=== PATIENT | female | born 1960 | race Caucasian/White ===

== ENCOUNTER 2016-11-18 15:32 | Observation (INO) | payer BC ==
[2016-11-18 15:51] VITALS: BMI 19.3
--- NOTE | 2016-11-18 15:52 | PDOC ---
Rapid Medical Evaluation Medical Evaluation: Allergies Allergy/AdvReac Type Severity Reaction Status Date / Time No Known Allergies Allergy Verified 11/18/16 15:46 11/18/16 15:49 I have performed a brief in-person evaluation of this patient. The patient presents with a chief complaint of: 55y/o F h/o palpitations p/w syncope, no injury. no focal neuro weakness Pertinent physical exam findings: VSS, BP 90/40 neuro intact, speech clear, ambulating irregular with normal rate I have ordered the following: EKG labs ua ct head at Dr. Cortez's request (family called as PMD and spoke with him while in triage) not consistent with CVA The patient will proceed to the ED for further evaluation. <Hao Love - Last Filed: 11/18/16 15:49> Medical Evaluation: Allergies Allergy/AdvReac Type Severity Reaction Status Date / Time No Known Allergies Allergy Verified 11/18/16 15:46 Vital Signs Temp Pulse Resp BP Pulse Ox 98.0 F 67 16 137/77 97 11/18/16 18:00 11/18/16 18:00 11/18/16 18:00 11/18/16 18:00 11/18/16 18:00 <Lisa Long - Last Filed: 11/18/16 19:07> Time Seen by Provider: 11/18/16 15:42
[2016-11-18 16:21] LABS: MCH 29.4 pg (25.7-33.7); MEAN CELL VOLUME 89.2 fl (80-96); MEAN PLT VOLUME 9.6 fl (7.5-11.1); RDW 13.4 % (11.6-15.6); WHITE BLOOD COUNT 19.4 K/mm3 (4.0-10.0)
[2016-11-18 16:38] LABS: INR 1.1 (0.82-1.09); PROTHROMBIN TIME (PATIENT) 12.1 SEC (9.98-11.88)
[2016-11-18 16:46] LABS: URINE APPEARANCE CLEAR; URINE BILIRUBIN NEGATIVE (NEGATIVE); URINE COLOR STRAW; URINE GLUCOSE (UA) NEGATIVE (NEGATIVE); URINE KETONE NEGATIVE (NEGATIVE); URINE LEUK ESTERASE NEGATIVE (NEGATIVE); URINE NITRITE NEGATIVE (NEGATIVE); URINE PROTEIN NEGATIVE (NEGATIVE); URINE UROBILINOGEN NEGATIVE E.U./dl (0.2-1.0)
[2016-11-18 17:00] LABS: ALBUMIN 4.1 g/dl (3.4-5.0); ANION GAP 12 (8-16); CALCIUM 8.9 mg/dL (8.5-10.1); CO2 28 mmol/L (21-32); CREATININE 0.7 mg/dL (0.55-1.02); GLUCOSE,RANDOM 106 mg/dL (74-106); MAGNESIUM 2.2 mg/dL (1.8-2.4); SGOT/AST 21 U/L (15-37); SGPT/ALT 26 U/L (12-78)
[2016-11-18 17:05] LABS: ALK PHOS 98 U/L (45-117); BILIRUBIN,TOTAL 0.4 mg/dL (0.2-1.0); TROPONIN I < 0.02 ng/ml (0.00-0.05)
[2016-11-18 17:13] LABS: URINE BLOOD 2+ (NEGATIVE)
[2016-11-18 17:16] LABS: GRANULAR CASTS 2 /lpf; URINE HYALINE CAST 2 /lpf; URINE MUCUS RARE; URINE RBC 6 /hpf (0-3); URINE WBC <1 /hpf (3-5)
[2016-11-18 17:41] LABS: PLATELET COMMENT2 NO CLOTTING DETECTED
[2016-11-18 18:27] LABS: URINE MARIJUANA THC POSITIVE ng/ml (CUTOFF=50)
--- NOTE | 2016-11-18 19:08 | PDOC ---
History of Present Illness <Anna Motley - Last Filed: 11/18/16 22:04> <Lisa Long - Last Filed: 11/18/16 23:28> - General Chief Complaint: Syncope/Near Syncope Stated Complaint: FAINTED/AMS/PALPITATIONS Time Seen by Provider: 11/18/16 15:42 - History of Present Illness Initial Comments: 11/18/16 19:09 The patient is a 55 year old female with a past medical hx of CLL, rosy's who presents to the ED for evaluation of a syncopal episode 1 hour ago. The patient states she was outside talking to her neighbors when she suddenly felt very thirsty. She reports she then had a syncopal episode. The patient notes this happened very quickly but denies any chest pain, palpitations, and SOB prior to her syncope. The patient states her son caught her so she denies any trauma to her head. She reports she smoked marijuana earlier today and reports she only had a few cashews to eat today. The patient reports she was disoriented for a little bit after but feels fine while in the ED. She denies a hx of syncopal episodes and reports she has been feeling her normal self the past few days. The patient denies nausea, vomiting The patient denies fever, chills Social: drink occasionally, smokes marijuana (Anna Motley) Past History <Anna Motley - Last Filed: 11/18/16 22:04> - Past Medical History Cancer: Yes (LEUKEMIA) - Psycho/Social/Smoking Cessation Hx Suicidal Ideation: No Smoking History: Never smoked <Lisa Long - Last Filed: 11/18/16 23:28> - Past Medical History Allergies/Adverse Reactions: Allergies Allergy/AdvReac Type Severity Reaction Status Date / Time No Known Allergies Allergy Verified 11/18/16 15:46 Home Medications: Ambulatory Orders NK [No Known Home Medication] 11/18/16 Review of Systems - Review of Systems Able to Perform ROS?: Yes <Anna Motley - Last Filed: 11/18/16 22:04> <Lisa Long - Last Filed: 11/18/16 23:28> - Review of Systems Comments:: 11/18/16 19:09 CONSTITUTIONAL: Absent: fever, chills, diaphoresis, generalized weakness, malaise, loss of appetite HEENT: Absent: rhinorrhea, nasal congestion, throat pain, throat swelling, difficulty swallowing, mouth swelling, ear pain, eye pain, visual Changes CARDIOVASCULAR: +Syncope. Absent: chest pain, palpitations, irregular heart rate, lightheadedness, peripheral edema RESPIRATORY: Absent: cough, shortness of breath, dyspnea with exertion, orthopnea, wheezing, stridor, hemoptysis GASTROINTESTINAL: Absent: abdominal pain, abdominal distension, nausea, vomiting, diarrhea, constipation, melena, hematochezia GENITOURINARY: Absent: dysuria, frequency, urgency, hesitancy, hematuria, flank pain, genital pain MUSCULOSKELETAL: Absent: myalgia, arthralgia, joint swelling SKIN: Absent: rash, itching, pallor NEUROLOGIC: Absent: headache, focal weakness or paresthesias, dizziness, unsteady gait, seizure, mental status changes, bladder or bowel incontinence PSYCHIATRIC: Absent: anxiety, depression, suicidal or homicidal ideation, hallucinations. (Anna Motley) *Physical Exam <Anna Motley - Last Filed: 11/18/16 22:04> <Lisa Long - Last Filed: 11/18/16 23:28> - Vital Signs Last Vital Signs Temp Pulse Resp BP Pulse Ox 98.0 F 67 16 137/77 97 11/18/16 18:00 11/18/16 18:00 11/18/16 18:00 11/18/16 18:00 11/18/16 18:00 - Physical Exam Comments: 11/18/16 19:09 GENERAL: Well developed, well nourished. Awake and alert. No acute distress. HEENT: Normocephalic, atraumatic. PERRLA, EOMI. No conjunctival pallor. Sclera are non- icteric. Moist mucous membranes. Oropharynx is clear. NECK: Supple. Full ROM. No JVD. Carotid pulses 2+ and symmetric, without bruits. No thyromegaly. No lymphadenopathy. CARDIOVASCULAR: Regular rate and rhythm. No murmurs, rubs, or gallops. Distal pulses are 2+ and symmetric. PULMONARY: No evidence of respiratory distress. Lungs clear to auscultation bilaterally. No wheezing, rales or rhonchi. ABDOMINAL: Soft. Non-tender. Non-distended. No rebound or guarding. No organomegaly. Normoactive bowel sounds. MUSCULOSKELETAL Normal range of motion at all joints. No bony deformities or tenderness. No CVA tenderness. EXTREMITIES: No cyanosis. No clubbing. No edema. No calf tenderness. SKIN: Warm and dry. Normal capillary refill. No rashes. No jaundice. NEUROLOGICAL: Alert, awake, appropriate. Cranial nerves 2-12 intact. No deficits to light touch and temperature in face, upper extremities and lower extremities. PSYCHIATRIC: Cooperative. Good eye contact. Appropriate mood and affect (Anna Motley) ED Treatment Course - LABORATORY CBC & Chemistry Diagram: 11/18/16 16:06 11/18/16 16:06 <Anna Motley - Last Filed: 11/18/16 22:04> - LABORATORY CBC & Chemistry Diagram: 11/18/16 16:06 11/18/16 16:06 <Lisa Long - Last Filed: 11/18/16 23:28> - ADDITIONAL ORDERS Additional order review: Laboratory Results 11/18/16 11/18/16 11/18/16 17:55 16:15 16:06 INR Sodium 141 Potassium 3.7 Chloride 101 Carbon Dioxide 28 Anion Gap 12 BUN 14 Creatinine 0.7 Creat Clearance w eGFR > 60 Random Glucose 106 Calcium 8.9 Magnesium 2.2 Total Bilirubin 0.4 AST 21 ALT 26 Alkaline Phosphatase 98 Creatine Kinase 76 Troponin I < 0.02 Total Protein 7.0 Albumin 4.1 Urine Color Straw Urine Appearance Clear Urine pH 6.0 Ur Specific [place] 1.008 Urine Protein Negative Urine Glucose (UA) Negative Urine Ketones Negative Urine Blood 2+ H Urine Nitrite Negative Urine Bilirubin Negative Urine Urobilinogen Negative Ur Leukocyte Esterase Negative Urine RBC 6 Urine WBC <1 Hyaline Casts 2 Granular Casts 2 Urine Mucus Rare Opiates Screen Negative Methadone Screen Negative Barbiturate Screen Negative Phencyclidine Screen Negative Ur Amphetamines Screen Negative MDMA (Ecstasy) Screen Negative Benzodiazepines Screen Negative Cocaine Screen Negative U Marijuana (THC) Screen Positive 11/18/16 16:06 INR 1.10 Sodium Potassium Chloride Carbon Dioxide Anion Gap BUN Creatinine Creat Clearance w eGFR Random Glucose Calcium Magnesium Total Bilirubin AST ALT Alkaline Phosphatase Creatine Kinase Troponin I Total Protein Albumin Urine Color Urine Appearance Urine pH Ur Specific [place] Urine Protein Urine Glucose (UA) Urine Ketones Urine Blood Urine Nitrite Urine Bilirubin Urine Urobilinogen Ur Leukocyte Esterase Urine RBC Urine WBC Hyaline Casts Granular Casts Urine Mucus Opiates Screen Methadone Screen Barbiturate Screen Phencyclidine Screen Ur Amphetamines Screen MDMA (Ecstasy) Screen Benzodiazepines Screen Cocaine Screen U Marijuana (THC) Screen 11/18/16 16:06 RBC 4.40 MCV 89.2 MCHC 33.0 RDW 13.4 MPV 9.6 Neutrophils % 69.0 Lymphocytes % 26.0 Monocytes % 5.0 Eosinophils % 0.0 Basophils % 0.0 - RADIOLOGY Radiograph Interpretation: 11/18/16 19:[address] without contrast Clinical information: lightheaded, syncope No intracranial hemorrhage is identified. There is no discrete infarct within the limitations of CT. No obvious mass lesion is identified on noncontrast imaging. The ventricles and cisterns appear unremarkable. Impression: No definite CT evidence of acute pathology. Reported By: Rod Peterson MD 11/18/16 1759 11/18/16 22:04 Chest portable one view Clinical information chest pain, evaluate for infiltrate No discrete infiltrate or pleural effusion is seen. There is no evidence of pneumothorax. The heart, marisela and mediastinum appear unremarkable as visualized. impression: No definite radiographic abnormality is visualized. Reported By: Rod Peterson MD 11/18/162052 (Anna Motley) - Medications Given in the ED: ED Medications Discontinued Medications Generic Name Dose Route Start Last Admin Trade Name Freq PRN Reason Stop Dose Admin Aspirin 325 mg 11/18/16 19:10 11/18/16 19:46 Asa - PO 11/18/16 19:11 325 mg ONCE ONE Administration Medical Decision Making <Anna Motley - Last Filed: 11/18/16 22:04> <Lisa Long - Last Filed: 11/18/16 23:28> - Medical Decision Making 11/18/16 20:08 Discussed patients case with Dr. Kellogg at 1930. Discussed patients case with Dr. Kingston at 2007. (Anna Motley) 11/18/16 23:16 55 yo female had a syncopal episode today. She felt fine and she suddenly fainted. She was caught by someone next to her and therefore did not sustain any head trauma -she reports feeling briefly confused after the incident but denies any slurred speech,facial droop, extremity numbness or weakness,headache or chest pain or shortness of breath -pt did smoke marijuana earlier ct head head no acute intracranial pathology cardiac enzyme negaitve ekg no acute ischemia did show incomplete right BBB nihss is [address] Mis Zambrano who was covering for Dr Lisa Hernandez . Dr Kellogg requested that Juan Manuel/David admit this pt and Dr Kellogg would be cards weight loss consultant Diff diag: cardiac arrhythmia/ drug rxn pt willl be admitted to tele (Lisa Long) *DC/Admit/Observation/Transfer <Anna Motley - Last Filed: 11/18/16 22:04> - Discharge Dispostion Admit: Yes <Lisa Long - Last Filed: 11/18/16 23:28> Diagnosis at time of Disposition: Syncope and collapse - Discharge Dispostion Decision to Admit order Date/Time: Decision to Admit Order Category Date Time Status Decision to Admit to Hospital Routine Admission 11/18/16 19:21 Active - Attestations Scribe Attestion: 11/18/16 19:09 Documentation prepared by Anna Motley, acting as faculty i on call medical assistant for Lisa Long MD/DO. (Anna Motley)
[2016-11-18] MEDS ORDERED: ASPIRIN 325 MG TABLET PO ONE (19:10)
[2016-11-18] MEDS ORDERED: ASPIRIN 325 MG TABLET ONE (19:39)
[2016-11-18] MEDS ORDERED: SODIUM CHLORIDE 1,000 ML IV SCH (22:30)
[2016-11-18 23:23] LABS: TROPONIN I < 0.02 ng/ml (0.00-0.05)
[2016-11-19] MEDS ORDERED: INFLUENZA VACCINE 45 MCG/0.5 ML (MDV 16-17) IM ONE (00:26)
[2016-11-19 07:31] LABS: FREE T4 1.26 ng/dl (0.76-1.46)
[2016-11-19 07:34] LABS: MCH 29.7 pg (25.7-33.7); MCHC 33.6 g/dl (32.0-36.0); MEAN CELL VOLUME 88.4 fl (80-96); MEAN PLT VOLUME 10.2 fl (7.5-11.1)
[2016-11-19 07:42] LABS: ALBUMIN 3.8 g/dl (3.4-5.0); ALK PHOS 96 U/L (45-117); ANION GAP 7 (8-16); BILIRUBIN,TOTAL 0.5 mg/dL (0.2-1.0); CALCIUM 8.8 mg/dL (8.5-10.1); CO2 30 mmol/L (21-32); CREATININE 0.6 mg/dL (0.55-1.02); GLUCOSE,RANDOM 76 mg/dL (74-106); SGOT/AST 19 U/L (15-37); SGPT/ALT 24 U/L (12-78); THYROID STIMULATING HORMONE 6.95 uIU/ml (0.358-3.74); TOT PROT 6.3 g/dl (6.4-8.2)
[2016-11-19 08:45] LABS: TROPONIN I < 0.02 ng/ml (0.00-0.05)
--- NOTE | 2016-11-19 10:25 | HP ---
Admitting History and Physical - Primary Care Physician PCP: Boyd Kellogg - Admission Chief Complaint: syncope History of Present Illness: ER HISTORY - History of Present Illness Initial Comments: 11/18/16 19:09 The patient is a 55 year old female with a past medical hx of CLL, rosy's who presents to the ED for evaluation of a syncopal episode 1 hour ago. The patient states she was outside talking to her neighbors when she suddenly felt very thirsty. She reports she then had a syncopal episode. The patient notes this happened very quickly but denies any chest pain, palpitations, and SOB prior to her syncope. The patient states her son caught her so she denies any trauma to her head. She reports she smoked marijuana earlier today and reports she only had a few cashews to eat today. The patient reports she was disoriented for a little bit after but feels fine while in the ED. She denies a hx of syncopal episodes and reports she has been feeling her normal self the past few days. The patient denies nausea, vomiting The patient denies fever, chills Pt seen by me in Telemetry Feels ok, no dizziness She admits she did not eat well yesterday, she does not have a good appetite HAs had multiple work up for palpitations and frequent APC -- stress test and event monitor was done recently. She denies palpitations during this syncopal episode Never had fainted before she just remembers everything becoming dark and closing in and lost consciousness. Her Oncologist is from [facility] -- she had seen her recently History Source: Patient Limitations to Obtaining History: No Limitations - Past Medical History Heme/Onc: Yes: Other (CLL) Endocrine: Yes: Other (Rosy's disease) - Smoking History Smoking history: Never smoked Have you smoked in the past 12 months: No - Alcohol/Substance Use Hx Alcohol Use: Yes (SOCIAL - 2 GLASSES WINE 3X/WK) Home Medications - Allergies Allergies/Adverse Reactions: Allergies Allergy/AdvReac Type Severity Reaction Status Date / Time No Known Allergies Allergy Verified 11/18/16 15:46 - Home Medications Home Medications: Ambulatory Orders NK [No Known Home Medication] 11/18/16 Review of Systems - Review of Systems Constitutional: reports: Loss of Appetite. denies: Chills, Fever, Weakness Cardiovascular: denies: Chest Pain, Palpitations, Shortness of Breath Neurological: denies: Dizziness, Headache Physical Examination Vital Signs: Vital Signs Temperature 97.6 F 11/19/16 06:00 Pulse Rate 55 L 11/19/16 06:00 Respiratory Rate 18 11/19/16 06:00 Blood Pressure 100/68 11/19/16 06:00 O2 Sat by Pulse Oximetry (%) 100 11/19/16 09:00 Constitutional: Yes: No Distress, Calm Cardiovascular: Yes: Regular Rate and Rhythm Respiratory: Yes: CTA Bilaterally Gastrointestinal: Yes: Normal Bowel Sounds, Soft. No: Distention, Tenderness Edema: No Neurological: Yes: WNL ...Motor Strength: WNL Psychiatric: Yes: Alert, Oriented Labs: CBC, BMP 11/19/16 05:35 11/19/16 05:35 Imaging - Results Chest X-ray: Image Reviewed (clear) Cat Scan: Report Reviewed (CT head- negative) EKG: Image Reviewed (Sinus rhythm, PVC) Problem List - Problems (1) Syncope and collapse Code(s): R55 - SYNCOPE AND COLLAPSE (2) CLL (chronic lymphocytic leukemia) Code(s): C91.10 - CHRONIC LYMPHOCYTIC LEUK OF B-CELL TYPE NOT ACHIEVE REMIS Assessment/Plan PLAN -- check Echo -- spoke with associate programmer -- Negative orthostasis -- -- IV fluids DVT prophylaxis-- pt is ambulatory
--- NOTE | 2016-11-19 11:03 | CON.CARD ---
Cardiology Consult (text) - Consultation Consultation Note: cc: syncope hpi: 55 f hx palps, CLL, rosy's, MVP here after episode of syncope. Pt has been feeling well lately, no recent illnesses, no cp, sob, dizzy, pnd, orthopnea, le edema. She has hx of palps past few months but they have improved and not been bothering her much lately. Yesterday she was feeling well , had some marijuana, didn't eat much during the day, then later in day was standing with son and suddenly felt "faint" and collapsed. Her son caught her so she didnt fall and reports she was passed out about 20 seconds. After she awoke she was a little confused. [place] better as time went on and came to ER for eval. No prior episodes, no repeat episodes since yesterday. Sees dr bassett for cardio. pmh: per hpi psh: nc social: no tob, +MJ fam: no premature cad or scd ros: per hpi; no nvd, fever, cough, nasal congestion, muscle pain, gib, hematuria, rash, scott, vision changes meds: none taken pe: Vital Signs Period Temp Pulse Resp BP Sys/Ballesteros Pulse Ox Last 24 Hr 97.6 F-98.0 F 55-88 16-19 94-137/46-81 97-100 nad no jvd rrr s1s2 no mrg cta bl nl eff aaox3 no le e/c/c abd nt nd pos bs no jaundice diaphoresis pos dp pt no carotid bruits Laboratory Last Values WBC 19.4 K/mm3 (4.0-10.0) H 11/18/16 16:06 RBC 4.29 M/mm3 (3.60-5.2) 11/19/16 05:35 Hgb 12.7 GM/dL (10.7-15.3) 11/19/16 05:35 Hct 37.9 % (32.4-45.2) 11/19/16 05:35 MCV 88.4 fl (80-96) 11/19/16 05:35 MCHC 33.6 g/dl (32.0-36.0) 11/19/16 05:35 RDW 13.0 % (11.6-15.6) 11/19/16 05:35 Plt Count Not Reportable 11/19/16 05:35 MPV 10.2 fl (7.5-11.1) 11/19/16 05:35 Neutrophils % 24.0 % (42.8-82.8) L D 11/19/16 05:35 Lymphocytes % 69.0 % (8-40) H D 11/19/16 05:35 Monocytes % 3.0 % (3.8-10.2) L 11/19/16 05:35 Eosinophils % 2.0 % (0-4.5) D 11/19/16 05:35 Basophils % 0.0 % (0-2.0) 11/18/16 16:06 Differential Comment Manual diff done 11/19/16 05:35 Platelet Comment Marked plt clumping 11/19/16 05:35 Platelet Comment No clotting detected 11/18/16 16:06 INR 1.10 (0.82-1.09) 11/18/16 16:06 Sodium 138 mmol/L (136-145) 11/19/16 05:35 Potassium 3.9 mmol/L (3.5-5.1) 11/19/16 05:35 Chloride 101 mmol/L (98-107) 11/19/16 05:35 Carbon Dioxide 30 mmol/L (21-32) 11/19/16 05:35 Anion Gap 7 (8-16) L 11/19/16 05:35 BUN 10 mg/dL (7-18) D 11/19/16 05:35 Creatinine 0.6 mg/dL (0.55-1.02) 11/19/16 05:35 Creat Clearance w eGFR > 60 (>60) 11/19/16 05:35 Random Glucose 76 mg/dL (74-106) D 11/19/16 05:35 Calcium 8.8 mg/dL (8.5-10.1) 11/19/16 05:35 Magnesium 2.2 mg/dL (1.8-2.4) 11/18/16 16:06 Total Bilirubin 0.5 mg/dL (0.2-1.0) D 11/19/16 05:35 AST 19 U/L (15-37) 11/19/16 05:35 ALT 24 U/L (12-78) 11/19/16 05:35 Alkaline Phosphatase 96 U/L (45-117) 11/19/16 05:35 Creatine Kinase 63 IU/L (26-192) 11/19/16 05:35 Troponin I < 0.02 ng/ml (0.00-0.05) 11/19/16 05:35 Total Protein 6.3 g/dl (6.4-8.2) L 11/19/16 05:35 Albumin 3.8 g/dl (3.4-5.0) 11/19/16 05:35 Vitamin B12 482 pg/ml (180-914) 11/19/16 05:35 TSH 6.95 uIU/ml (0.358-3.74) H 11/19/16 05:35 Free T4 1.26 ng/dl (0.76-1.46) 11/19/16 05:35 Urine Color Straw 11/18/16 16:15 Urine Appearance Clear 11/18/16 16:15 Urine pH 6.0 (5.0-8.0) 11/18/16 16:15 Ur Specific [place] 1.008 (1.001-1.035) 11/18/16 16:15 Urine Protein Negative (NEGATIVE) 11/18/16 16:15 Urine Glucose (UA) Negative (NEGATIVE) 11/18/16 16:15 Urine Ketones Negative (NEGATIVE) 11/18/16 16:15 Urine Blood 2+ (NEGATIVE) H 11/18/16 16:15 Urine Nitrite Negative (NEGATIVE) 11/18/16 16:15 Urine Bilirubin Negative (NEGATIVE) 11/18/16 16:15 Urine Urobilinogen Negative E.U./dl (0.2-1.0) 11/18/16 16:15 Ur Leukocyte Esterase Negative (NEGATIVE) 11/18/16 16:15 Urine RBC 6 /hpf (0-3) 11/18/16 16:15 Urine WBC <1 /hpf (3-5) 11/18/16 16:15 Hyaline Casts 2 /lpf 11/18/16 16:15 Granular Casts 2 /lpf 11/18/16 16:15 Urine Mucus Rare 11/18/16 16:15 Opiates Screen Negative ng/ml (IUWLWK=044) 11/18/16 17:55 Methadone Screen Negative ng/ml (DMGKBV=325) 11/18/16 17:55 Barbiturate Screen Negative ng/ml (LQQMUF=335) 11/18/16 17:55 Phencyclidine Screen Negative ng/ml (CUTOFF=25) 11/18/16 17:55 Ur Amphetamines Screen Negative ng/ml (IOVMQA=308) 11/18/16 17:55 MDMA (Ecstasy) Screen Negative ng/ml (KJYYPE=436) 11/18/16 17:55 Benzodiazepines Screen Negative ng/ml (SPEPQS=757) 11/18/16 17:55 Cocaine Screen Negative ng/ml (IJGQKV=161) 11/18/16 17:55 U Marijuana (THC) Screen Positive ng/ml (CUTOFF=50) 11/18/16 17:55 cxr: clear lungs head ct: no acute findings tele: sr, artifact ecg 11/18/16: sr, pacs, nl intervals, IRBBB, no ischemic changes carotids 11/2016: minimal thickening, no sig stenosis mibi 09/2016: normal study, no ischemia a/p: 55 f hx palps, CLL, rosy's, MVP here after episode of syncope. syncope: -no obvious cardiac etiology at present -ecg, tele, carotids unremarkable -ce's neg x3 -recent outpt mibi wnl per dr bassett -echo pending here -check orthostatic vs -holter ordered here although pt had recent unremarkable 2 week event monitor with dr bassett so will likely be unremarkable -possible vagal episode in setting of using marijuana and not eating -if echo benign can dc from cardiac pov (if current holter can be completed as outpt) and pt will f/u with dr bassett palps: -plan as above -chronic, extensive outpt work up unremarkable (event monitor, mibi) -palps have been less frequent recently, not really bothering pt -tele unremarkable here -outpt f/u with dr bassett mvp: -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
[2016-11-19 11:45] LABS: PLATELET ESTIMATE SLT DECREASED (NORMAL)
[2016-11-19 11:46] LABS: WHITE BLOOD COUNT 4.1 K/mm3 (4.0-10.0)
--- NOTE | 2016-11-19 13:59 | EKG ---
Test Reason : Blood Pressure : / mmHG Vent. Rate : 070 BPM Atrial Rate : 070 BPM P-R Int : 160 ms QRS Dur : 098 ms QT Int : 428 ms P-R-T Axes : 067 043 059 degrees QTc Int : 462 ms SINUS RHYTHM WITH MARKED SINUS ARRHYTHMIA WITH PREMATURE SUPRAVENTRICULAR COMPLEXES INCOMPLETE RIGHT BUNDLE BRANCH BLOCK BORDERLINE ECG NO PREVIOUS ECGS AVAILABLE Confirmed by FAVIOLA PRATT MD ([id number]) on 11/19/2016 1:58:47 PM Referred By: Confirmed By:FAVIOLA PRATT MD
[2016-11-19] MEDS ORDERED: SODIUM CHLORIDE 250 ML IV SCH (15:45)
[2016-11-19] MEDS ORDERED: SODIUM CHLORIDE 1,000 ML IV SCH (16:45)
[2016-11-20 08:32] VITALS: PULSE 53
[2016-11-20 10:44] VITALS: BP 118/80; TEMP 96.7
--- NOTE | 2016-11-20 10:51 | PN ---
Progress Note (short form) - Note Progress Note: s: no cp sob palps dizzy o: Vital Signs Period Temp Pulse Resp BP Sys/Ballesteros Pulse Ox Last 24 Hr 96.7 F-98.2 F 53-61 18-20 82-119/44-80 99-99 nad no jvd rrr s1s2 no mrg cta bl nl eff aaox3 no le e/c/c abd nt nd pos bs no jaundice diaphoresis Current Medications Generic Name Dose Route Start Last Admin Trade Name Freq PRN Reason Stop Dose Admin Sodium Chloride 1,000 mls @ 100 mls/hr 11/19/16 16:45 11/19/16 17:07 Normal Saline - IV 100 mls/hr ASDIR ILEANA Administration CBC, BMP 11/19/16 05:35 11/19/16 05:35 cxr: clear lungs head ct: no acute findings tele: sr, occ pacs ecg 11/18/16: sr, pacs, nl intervals, IRBBB, no ischemic changes carotids 11/2016: minimal thickening, no sig stenosis echo 11/2016: nl lv/rv, nl rvsp, mild mr/tr/pr mibi 09/2016: normal study, no ischemia a/p: 55 f hx palps, CLL, rosy's, MVP here after episode of syncope. syncope: -no obvious cardiac etiology at present -ecg, tele, echo, orthostatics, carotids unremarkable -ce's neg x3 -recent outpt mibi wnl per dr bassett -holter on now, to be completed today, can be followed up as outpt as she was on tele as well during monitoring period and no significant abnormalities noted -possible vagal episode in setting of using marijuana and not eating -can dc from cardiac pov and pt will f/u with dr bassett palps: -plan as above -chronic, extensive outpt work up unremarkable (event monitor, mibi) -palps have been less frequent recently, not really bothering pt -tele unremarkable here -outpt f/u with dr bassett mvp: -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
--- NOTE | 2016-11-20 11:17 | HOL ---
Hook-up date: 2016-11-19 11:02:00 Duration: 23:13:00 Test Indications: SYNCOPE Medications: 66321 QRS complexes * Ventricular ectopics which represent % of total QRS comp. 4077 Supraventricular ectopics which represent 4 % of total QRS comp. * Paced QRS complexs which represent % of total QRS comp. * % of Time Classified as Noise VENTRICULAR ECTOPY * Isolated * Bigeminal Cycles * Couplets * Runs * Beats in Runs * Beats LONGEST at * BPM at :: -- * Beats FASTEST at * BPM at :: -- SUPRAVENTRICULAR ECTOPY 1410 Isolated 421 Couplets 555 Runs 1825 Beats in Runs 11 Beats LONGEST at 91 BPM at 08:16:26 2016-11-20 3 Beats FASTEST at 140 BPM at 06:57:40 2016-11-20 HEART RATES 42 MIN at 02:05:32 2016-11-20 61 AVG 94 MAX at 08:00:13 2016-11-20 LONGEST RR 1.592 secs at 02:05:25 2016-11-20 SCANNED BY TELMA PARIKH 11/20/2016 NO DIARY SUBMITTED 1. Baseline rhythm is sinus with avg hr 61 and range 42 to 94. 2. No significant paues or bradycardia detected. 3. No PVCs detected. 4. Frequent PACs as well as sinus arrhythmia. No significant atrial runs. 5. No VT, VF, Afib, Aflutter detected. 6. No diary submitted. Confirmed by ETHEL BUCIO, MAMI ([id number]) on 11/20/2016 11:16:46 AM Referred By: Overread By: MAMI DAVENPORT MD
--- NOTE | 2016-11-20 13:22 | DS ---
Physical Examination Vital Signs: Vital Signs Temperature 96.7 F L 11/20/16 10:00 Pulse Rate 53 L 11/20/16 10:00 Respiratory Rate 18 11/20/16 10:00 Blood Pressure 118/80 11/20/16 10:00 O2 Sat by Pulse Oximetry (%) 99 11/20/16 06:00 Constitutional: Yes: No Distress, Calm Cardiovascular: Yes: Regular Rate and Rhythm Respiratory: Yes: CTA Bilaterally Gastrointestinal: Yes: Normal Bowel Sounds, Soft. No: Distention, Tenderness Edema: No Labs: CBC, BMP 11/19/16 05:35 11/19/16 05:35 Discharge Summary Reason For Visit: SYNCOPE AND COLLAPSE Current Active Problems CLL (chronic lymphocytic leukemia) (Acute) Syncope and collapse (Acute) Hospital Course: Admitted for syncope Seen by Cardiology -- Telemetry uneventful CT head- normal Carotid doppler- normal Echo normal Pt stable for discharge Will be seeing her pattern hand as outpt Also will be seeing a Neurologist as well- referred to Dr Corbett Condition: Stable - Instructions Referrals: Hector Sebastian DO [Staff Physician] - (neurology) Boyd Kellogg MD [Staff Physician] - Disposition: HOME - Home Medications Comprehensive Discharge Medication List: Ambulatory Orders NK [No Known Home Medication] 11/18/16
== END 2016-11-20 13:17 | disposition home or self-care (01) ==
LOC: JER 15:32 → JERBED 19:21 → INTOOBSV 19:21 → JERBED 19:40 → UNDOADMIN 19:40 → J4W 23:07 → JERBED 23:07
PROVIDERS: ADMIT Internal Medicine; ATTEND Internal Medicine
DX: R55 Syncope and collapse (principal); R00.2 Palpitations; C91.10 Chronic lymphocytic leukemia of B-cell type not having achieved remission; I34.1 Nonrheumatic mitral (valve) prolapse; E06.3 Autoimmune thyroiditis; F12.90 Cannabis use, unspecified, uncomplicated
CPT/HCPCS: 36415; 70450-TC; 71010-TC; 80053; 80307; 81003; 81015; 82550; 82607; 83735; 84439; 84443; 84484; 85025; 85610; 93005; 93010; 93225; 93226; 93306-TC; 93880-TC; 99285-25; G0378